=== PATIENT | female | born 1985 | race African-American/Black ===

== ENCOUNTER 2024-02-19 09:33 | Emergency (ER) | payer OTHER ==
[~2024-02-19] VITALS: Ht 160 cm; Wt 68.0 kg
[2024-02-19 09:46] VITALS: O2SAT 99
[2024-02-19] MEDS ORDERED: IBUP-1523 MT (11:43)
[2024-02-19] MEDS ORDERED: TOPUD MT (11:43)
[2024-02-19] MEDS ORDERED: AMOX-494 MT (11:43)
[2024-02-19] MEDS: KETOROLAC 60MG/2ML VIAL IM ONE (12:08)
[2024-02-19 12:10] VITALS: BP 114/76; PULSE 96; RESP 18; TEMP 98
== END 2024-02-19 12:22 | disposition home or self-care (01) ==
LOC: ER 09:33
DX: J02.9 Acute pharyngitis, unspecified (principal); M25.511 Pain in right shoulder; Z90.49 Acquired absence of other specified parts of digestive tract; Z98.890 Other specified postprocedural states
CPT/HCPCS: 99283; Z7610; 99281

== ENCOUNTER 2024-10-27 14:13 | Emergency (ER) | payer OTHER ==
[~2024-10-27] VITALS: Ht 160 cm; Wt 68.0 kg
[~2024-10-27 14:13] MED LIST: AMOX-494 MT; IBUP-1523 MT; TOPUD MT
[2024-10-27 14:19] VITALS: BP 111/79; TEMP 98.9; O2SAT 98
[2024-10-27 14:20] VITALS: PULSE 81; RESP 18; O2SAT 99
[2024-10-27] MEDS ORDERED: MUPI1OIN4 TP (16:41)
[2024-10-27] MEDS ORDERED: ACET-2708 PO (16:41)
[2024-10-27] MEDS ORDERED: ASCO500C19 PO (16:41)
[2024-10-27] MEDS ORDERED: GUAI600T26 MT (16:41)
== END 2024-10-27 19:50 | disposition home or self-care (01) ==
LOC: ER 14:13
DX: S70.321A Blister (nonthermal), right thigh, initial encounter (principal); Z90.49 Acquired absence of other specified parts of digestive tract; X58.XXXA Exposure to other specified factors, initial encounter; Y93.89 Activity, other specified; Y92.89 Other specified places as the place of occurrence of the external cause; Y99.8 Other external cause status
CPT/HCPCS: 99282

== ENCOUNTER 2024-12-29 19:22 | Emergency (ER) | payer OTHER ==
[~2024-12-29] VITALS: Ht 160 cm; Wt 73.3 kg
[~2024-12-29 19:22] MED LIST changes: +ACET-2708 PO; +GUAI600T26 MT; +MUPI1OIN4 TP
[2024-12-29 20:07] VITALS: BP 121/79; PULSE 85; RESP 13; TEMP 38.1; O2SAT 100
[2024-12-30] MEDS ORDERED: GUAI-450 MT (00:50)
[2024-12-30] MEDS ORDERED: GUAI-996 MT (01:51)
== END 2024-12-29 20:25 | disposition left against medical advice (07) ==
LOC: ER 19:22
DX: J00 Acute nasopharyngitis [common cold] (principal); Z53.21 Procedure and treatment not carried out due to patient leaving prior to being seen by health care provider

== ENCOUNTER 2024-12-29 22:00 | Emergency (ER) | payer OTHER ==
[~2024-12-29] VITALS: Ht 160 cm; Wt 64.2 kg
[2024-12-29 22:39] VITALS: O2SAT 100
[2024-12-30] MEDS ORDERED: GUAI-450 MT (00:50)
[2024-12-30 01:20] VITALS: BP 124/79; PULSE 64; RESP 15; TEMP 37.2; O2SAT 99
[2024-12-30] MEDS ORDERED: GUAI-996 MT (01:51)
== END 2024-12-30 01:20 | disposition home or self-care (01) ==
LOC: ER 22:00
DX: J06.9 Acute upper respiratory infection, unspecified (principal); B97.89 Other viral agents as the cause of diseases classified elsewhere; R05.9 Cough, unspecified; Z20.822 Contact with and (suspected) exposure to COVID-19; Z79.899 Other long term (current) drug therapy
CPT/HCPCS: 87426; 87804; 99283

== ENCOUNTER 2025-03-06 15:03 | Emergency (ER) | payer MEDICAID, OTHER ==
[~2025-03-06] VITALS: Ht 160 cm; Wt 75.6 kg
[~2025-03-06 15:03] MED LIST changes: +GUAI-996 MT
[2025-03-06 15:42] VITALS: TEMP 36.8; O2SAT 98
[2025-03-06 15:59] VITALS: O2SAT 100
[2025-03-06 17:54] VITALS: BP 107/56; PULSE 100; RESP 18
[2025-03-06] MEDS: KETOROLAC 30MG/ML VIAL IM ONE (17:54)
[2025-03-06 17:55] VITALS: TEMP 98.3
[2025-03-06] MEDS: ACETAMINOPHEN 325MG TABLET PO ONE (17:55)
[2025-03-06] MEDS ORDERED: NAPR-681 MT (18:47)
== END 2025-03-06 18:46 | disposition left against medical advice (07) ==
LOC: ER 15:03
DX: M54.9 Dorsalgia, unspecified (principal); Z79.1 Long term (current) use of non-steroidal anti-inflammatories (NSAID); Z90.49 Acquired absence of other specified parts of digestive tract; V43.52XA Car driver injured in collision with other type car in traffic accident, initial encounter; Y92.410 Unspecified street and highway as the place of occurrence of the external cause; Y93.89 Activity, other specified; Y99.8 Other external cause status
CPT/HCPCS: 99283; 71046; J1885

== ENCOUNTER 2025-07-10 21:35 | Emergency (ER) | payer OTHER ==
[~2025-07-10] VITALS: Ht 162.6 cm; Wt 72.7 kg
[~2025-07-10 21:35] MED LIST changes: +NAPR-681 MT
[2025-07-10 21:55] VITALS: BP 131/75; TEMP 36.8; O2SAT 100
[2025-07-10 21:56] VITALS: PULSE 74; RESP 17; O2SAT 100
[2025-07-10 22:56] LABS: BASOPHILS % 0.4 % (0.0-2.0); EOSINOPHILS % 1.3 % (0.0-5.0); HEMATOCRIT. 33.8 % (36.0-48.0); HEMOGLOBIN. 10.6 g/dL (12.0-16.0); LYMPHOCYTES % 58.6 % (20.0-50.0); MEAN PLATELET VOLUME 7.2 fl (7.4-10.4); MONOCYTES % 6.9 % (2.0-8.0); NEUTROPHILS % 32.8 % (40.0-76.0); PLATELET 304 x1000/uL (130-400); RED BLOOD CELL COUNT 4.27 mill/uL (4.2-5.4); RED CELL DISTRIBUTION WIDTH 14.7 % (11.6-14.6)
[2025-07-10 23:08] LABS: CREATININE 0.7 mg/dL (0.6-1.0)
[2025-07-10 23:09] LABS: UREA NITROGEN BLOOD 7 mg/dL (9-23)
[2025-07-11] MEDS ORDERED: WITC1MED TP (00:13)
[2025-07-11] MEDS ORDERED: IBUP-2028 MT (00:13)
[2025-07-11] MEDS ORDERED: TOPUD MT (00:13)
== END 2025-07-11 00:43 | disposition home or self-care (01) ==
LOC: ER 21:35
DX: K64.4 Residual hemorrhoidal skin tags (principal); Z79.1 Long term (current) use of non-steroidal anti-inflammatories (NSAID); Z87.19 Personal history of other diseases of the digestive system
CPT/HCPCS: 36415; 72170; 80048; 85025; 99284

== ENCOUNTER 2025-08-14 15:03 | Emergency (ER) | payer OTHER ==
[~2025-08-14] VITALS: Ht 157.5 cm; Wt 69.0 kg
[~2025-08-14 15:03] MED LIST changes: +IBUP-2028 MT; +WITC1MED TP
[2025-08-14 15:09] VITALS: O2SAT 99
[2025-08-14] MEDS ORDERED: TC025C15 TP (19:01)
[2025-08-14] MEDS ORDERED: ACET-2708 MT (19:01)
[2025-08-14] MEDS ORDERED: BO1 TP (19:01)
[2025-08-14] MEDS ORDERED: HYDR30CR80 TP (19:01)
[2025-08-14 19:40] VITALS: BP 125/79; PULSE 74; RESP 18; TEMP 36.9; O2SAT 99
== END 2025-08-14 19:43 | disposition home or self-care (01) ==
LOC: ER 15:03
DX: L24.9 Irritant contact dermatitis, unspecified cause (principal); T63.301A Toxic effect of unspecified spider venom, accidental (unintentional), initial encounter; K64.9 Unspecified hemorrhoids; Z76.0 Encounter for issue of repeat prescription; Z79.1 Long term (current) use of non-steroidal anti-inflammatories (NSAID); Y92.89 Other specified places as the place of occurrence of the external cause
CPT/HCPCS: 99283; Z7610